=== PATIENT | female | born 1960 | race Caucasian/White ===

== ENCOUNTER 2021-03-27 08:08 | Inpatient (IN) | payer MEDICARE ==
[~2021-03-27] VITALS: Ht 160 cm; Wt 127.0 kg
[~2021-03-27 08:08] MED LIST: ONDANSETRON HCL4 MG PO; PRILOSEC OTC20 MG PO
[2021-03-27 08:50] LABS: RED BLOOD COUNT 4.67 M/UL (4.00-5.10)
[2021-03-27 09:54] LABS: BUN/CREATININE RATIO 9 (0-10)
[2021-03-27] MEDS ORDERED: VITAMIN B-121000 MCG PO (18:06)
[2021-03-27] MEDS ORDERED: ASPIRIN EC81 MG PO (18:06)
[2021-03-27] MEDS ORDERED: ZINC50 M1 PO (18:06)
[2021-03-27] MEDS ORDERED: IBU600 MG PO (18:06)
[2021-03-27] MEDS ORDERED: VITAMIN D325 MC6 PO (18:07)
[2021-03-27] MEDS ORDERED: DAILY VALUE1 EACH PO (18:08)
[2021-03-28 05:56] LABS: HEMOGLOBIN 12.6 gm/dl (12.3-15.3); RED BLOOD COUNT 4.24 M/UL (4.00-5.10); WHITE BLOOD COUNT 6.5 K/UL (4.5-11.0)
[2021-03-28 06:23] LABS: BUN/CREATININE RATIO 11 (0-10)
[2021-03-30 06:53] LABS: BUN/CREATININE RATIO 22 (0-10)
--- NOTE | 2021-03-31 13:28 | NUR ---
1325: PATIENT SPO2 DECREASED TO 88% ON R/A WITH AMBULATION. PLACED BACK ON 3 LPM N/C. DR EDEN NOTIFIED.
[2021-03-31 14:30] LABS: HEMOGLOBIN 14.2 gm/dl (12.3-15.3); RED BLOOD COUNT 4.78 M/UL (4.00-5.10); WHITE BLOOD COUNT 10.9 K/UL (4.5-11.0)
[2021-03-31 14:53] LABS: BUN/CREATININE RATIO 22 (0-10)
--- NOTE | 2021-04-01 08:50 | NUR ---
0730: ROOM AIR SPO2 NOTED AT 88%.
[2021-04-01] MEDS ORDERED: OMNICEF 300 MG300 MG PO (09:35)
[2021-04-01] MEDS ORDERED: BUDESONIDE0.25 MG/2 NEB (09:35)
[2021-04-01] MEDS ORDERED: LOPRESSOR 25 MG25 MG PO (09:35)
[2021-04-01] MEDS ORDERED: POLYETHYLENE GL17 GM PO (09:35)
[2021-04-01] MEDS ORDERED: ONDANSETRON HCL4 MG PO (09:35)
[2021-04-01] MEDS ORDERED: IPRATROPIU0.2 MG/1 M NEB (09:35)
[2021-04-01] MEDS ORDERED: ELIQUIS2.5 MG PO (09:35)
[2021-04-01] MEDS ORDERED: DOXYCYCLINE HY100 M2 PO (09:35)
[2021-04-01] MEDS ORDERED: DECADRON6 MG PO (09:42)
== END 2021-04-01 11:52 | disposition home or self-care (01) | DRG 177 ==
LOC: ER1 08:08 → CDU 11:37 → M/S 11:37
PROVIDERS: Emergency Medicine; Internal Medicine; ADMIT Internal Medicine
PROC: XW033E5 Introduction of Remdesivir Anti-infective into Peripheral Vein, Percutaneous Approach, New Technology Group 5 (ICD-10-PCS; principal; 2021-03-27)
PROC: 3E0333Z Introduction of Anti-inflammatory into Peripheral Vein, Percutaneous Approach (ICD-10-PCS; 2021-03-27)
PROC: XW033G6 Introduction of REGN-COV2 Monoclonal Antibody into Peripheral Vein, Percutaneous Approach, New Technology Group 6 (ICD-10-PCS; 2021-03-27)
PROC: 8E0ZXY6 Isolation (ICD-10-PCS; 2021-03-27)
DX: U07.1 COVID-19 (principal); J12.82 Pneumonia due to coronavirus disease 2019; J96.01 Acute respiratory failure with hypoxia; J15.9 Unspecified bacterial pneumonia; E87.6 Hypokalemia; E78.5 Hyperlipidemia, unspecified; K59.00 Constipation, unspecified; R94.5 Abnormal results of liver function studies; Z79.82 Long term (current) use of aspirin; Z79.899 Other long term (current) drug therapy; Z90.710 Acquired absence of both cervix and uterus; Z98.51 Tubal ligation status; Z98.890 Other specified postprocedural states; Z88.5 Allergy status to narcotic agent; Z23 Encounter for immunization
CPT/HCPCS: 36415; 36600; 71045; 80048; 80053; 82550; 82553; 82803; 83735; 83874; 84132; 84484; 85025; 85027; 85379; 86140; 93005; 94640; 94664; 94760; 96374; 99285; J0696; J1100; J2405; J7030; M0243; Q0243

== ENCOUNTER → 2021-12-15 | Outpatient (CLI) | payer MEDICARE ==
[~2021-12-15] MED LIST changes: +ASPIRIN EC81 MG PO; +BUDESONIDE0.25 MG/2 NEB; +DAILY VALUE1 EACH PO; +DECADRON6 MG PO; +DOXYCYCLINE HY100 M2 PO; +ELIQUIS2.5 MG PO; +IBU600 MG PO; +IPRATROPIU0.2 MG/1 M NEB; +LOPRESSOR 25 MG25 MG PO; +OMNICEF 300 MG300 MG PO; +POLYETHYLENE GL17 GM PO; +VITAMIN B-121000 MCG PO; +VITAMIN D325 MC6 PO; +ZINC50 M1 PO
== END ==
LOC: SLEEP 12:31
DX: G47.33 Obstructive sleep apnea (adult) (pediatric) (principal)
CPT/HCPCS: 95811